=== PATIENT | male | born 1945 | race Caucasian/White ===

== ENCOUNTER 2017-06-27 11:39 | Observation (INO) | payer MEDICARE, OTHER ==
[2017-06-27 13:06] LABS: BASO # 0.1 10^3/uL (0.0-0.2); BASO % 0.3 % (0.0-1.0); EOS % 0.2 % (0.0-3.0); HEMATOCRIT 45.7 % (42.0-52.0); HEMOGLOBIN 15.6 g/dl (14.0-18.0); IMMATURE GRANULOCYTE % 0.5 % (0-3.0); LYMPH # 1.5 10^3/uL (1.5-4.5); LYMPH % 9.4 % (24.0-44.0); MEAN CORPUSCULAR HEMOGLOBIN 28.1 pg (27.0-33.0); MEAN CORPUSCULAR HGB CONC 34.1 g/dl (32.0-36.5); MEAN CORPUSCULAR VOLUME 82.2 fl (80.0-96.0); MONO # 1.1 10^3/uL (0.0-0.8); MONO % 6.7 % (0.0-5.0); NEUTROPHILS # 13.4 10^3/uL (1.8-7.7); NEUTROPHILS % 82.9 % (36.0-66.0); PLATELET COUNT, AUTOMATED 303 10^3/uL (150-450); RED BLOOD COUNT 5.56 10^6/uL (4.30-6.10); RED CELL DISTRIBUTION WIDTH 13.7 % (11.5-14.5); WHITE BLOOD COUNT 16.1 10^3/uL (4.0-10.0)
[2017-06-27] MEDS: GASTROGRAFIN SOLUTION 30ML PO ×4 (13:25→14:15)
[2017-06-27 13:28] LABS: ALBUMIN 4.4 GM/DL (3.2-5.2); ALBUMIN/GLOBULIN RATIO 1.26 (1.00-1.93); ALKALINE PHOSPHATASE 87 U/L (45-117); ALT/SGPT 31 U/L (12-78); ANION GAP 9 MEQ/L (8-16); AST/SGOT 27 U/L (7-37); BILIRUBIN,DIRECT 0.2 MG/DL (0.0-0.2); BILIRUBIN,TOTAL 0.7 MG/DL (0.2-1.0); BLOOD UREA NITROGEN 20 MG/DL (7-18); CALCIUM LEVEL 9.5 MG/DL (8.8-10.2); CARBON DIOXIDE LEVEL 29 MEQ/L (21-32); CHLORIDE LEVEL 105 MEQ/L (98-107); CREATININE FOR GFR 1.04 MG/DL (0.70-1.30); GLOMERULAR FILTRATION RATE > 60.0 (>42); GLUCOSE, FASTING 120 MG/DL (70-100); LIPASE 126 U/L (73-393); POTASSIUM SERUM 4.3 MEQ/L (3.5-5.1); SODIUM LEVEL 143 MEQ/L (136-145); TOTAL PROTEIN 7.9 GM/DL (6.4-8.2)
[2017-06-27] MEDS: MORPHINE 4 MG/ML 1ML VIAL (J2270) IV ×6 (13:36→18:12)
[2017-06-27 13:41] LABS: CPK CREATINE PHOSPHOKINASE 162 U/L (39-308)
[2017-06-27 13:58] LABS: CK-MB VALUE MASS 2.8 NG/ML (0.0-3.6); MB/CK RELATIVE INDEX 1.72 (< OR =4); TROPONIN I 0.02 NG/ML (< 0.10)
[2017-06-27] MEDS: LABETALOL HCL 100 MG/20 ML VIAL IV ×2 (14:27)
[2017-06-27] MEDS ORDERED: ISOVUE-370 76% 100ML VIAL (Q9967) As Ordered ×2 (14:36)
[2017-06-27 15:31] LABS: AMORPHOUS SEDIMENT RFX SMALL (NEGATIVE); KETONE, URINE AUTO RFX TRACE mg/dL (NEGATIVE); LEUKOCYTE ESTERASE UR AUTO RFX NEGATIVE (NEGATIVE); NITRITE, URINE AUTO RFX NEGATIVE (NEGATIVE); RBC, URINE AUTO RFX 5 /HPF (0-3); SPECIFIC GRAVITY UR AUTO RFX 1.015 (1.002-1.035); SQUAM EPITHELIAL CELL UR AURFX 0 /HPF (0-6); WBC, URINE AUTO RFX 0 /HPF (0-3)
[2017-06-27] MEDS: NS 1,000 ML IV ×4 (16:00→21:22)
[2017-06-27] MEDS ORDERED: MORPHINE 4 MG/ML 1ML VIAL (J2270) IV ×4 (16:00→20:30)
[2017-06-27] MEDS: KETOROLAC 30 MG/ML VIAL (J1885) IV ×2 (16:13)
[2017-06-27] MEDS: METOPROLOL TART 25 MG TABLET PO ×2 (16:13)
[2017-06-27 18:47] LABS: CK-MB VALUE MASS 2.4 NG/ML (0.0-3.6); CPK CREATINE PHOSPHOKINASE 151 U/L (39-308); MB/CK RELATIVE INDEX 1.58 (< OR =4); TROPONIN I 0.02 NG/ML (< 0.10)
[2017-06-27] MEDS ORDERED: PERCOCET 5MG/325MG TAB PO ×2 (20:30)
[2017-06-27] MEDS: TAMSULOSIN 0.4 MG CAP PO ×2 (21:22)
[2017-06-27] MEDS: HEPARIN SOD (PORCINE) 5000 UNITS/ML VIAL SC ×2 (22:08)
[2017-06-27] MEDS: SENOKOT S TAB PO ×2 (22:23)
[2017-06-27] MEDS: ATORVASTATIN 10 MG TAB PO ×2 (22:23)
[2017-06-28] MEDS: HEPARIN SOD (PORCINE) 5000 UNITS/ML VIAL SC ×2 (06:20)
[2017-06-28 07:08] LABS: HEMATOCRIT 39.8 % (42.0-52.0); MEAN CORPUSCULAR HEMOGLOBIN 27.7 pg (27.0-33.0); MEAN CORPUSCULAR HGB CONC 33.2 g/dl (32.0-36.5); MEAN CORPUSCULAR VOLUME 83.4 fl (80.0-96.0); PLATELET COUNT, AUTOMATED 246 10^3/uL (150-450); RED BLOOD COUNT 4.77 10^6/uL (4.30-6.10); RED CELL DISTRIBUTION WIDTH 13.9 % (11.5-14.5); WHITE BLOOD COUNT 9.9 10^3/uL (4.0-10.0)
[2017-06-28 07:16] LABS: HEMOGLOBIN 13.2 g/dl (14.0-18.0)
[2017-06-28 07:25] LABS: ANION GAP 6 MEQ/L (8-16); BLOOD UREA NITROGEN 21 MG/DL (7-18); CALCIUM LEVEL 8.6 MG/DL (8.8-10.2); CARBON DIOXIDE LEVEL 29 MEQ/L (21-32); CHLORIDE LEVEL 104 MEQ/L (98-107); CREATININE FOR GFR 1.14 MG/DL (0.70-1.30); GLOMERULAR FILTRATION RATE > 60.0 (>42); GLUCOSE, FASTING 99 MG/DL (70-100); MAGNESIUM LEVEL 2.4 MG/DL (1.8-2.4); POTASSIUM SERUM 3.7 MEQ/L (3.5-5.1); SODIUM LEVEL 139 MEQ/L (136-145)
[2017-06-28] MEDS: OMEPRAZOLE 20 MG CAP PO ×2 (08:59)
[2017-06-28] MEDS: SENOKOT S TAB PO ×2 (09:00)
[2017-06-28] MEDS: ASCORBIC ACID 500 MG TAB PO ×2 (09:00)
== END 2017-06-28 11:36 | disposition home or self-care (01) ==
LOC: M ED 11:39 → M ED INP 20:52
DX: N13.2 Hydronephrosis with renal and ureteral calculous obstruction (principal); I16.0 Hypertensive urgency; K21.9 Gastro-esophageal reflux disease without esophagitis; E78.5 Hyperlipidemia, unspecified; K59.00 Constipation, unspecified; Z79.899 Other long term (current) drug therapy
CPT/HCPCS: J2270

== ENCOUNTER → 2017-07-26 | Outpatient (REF) | payer MEDICARE, OTHER ==
[2017-07-26 18:00] LABS: APPEARANCE, URINE CLEAR (CLEAR); BACTERIA, URINE AUTO NEGATIVE (NEGATIVE); BILIRUBIN, URINE AUTO NEGATIVE (NEGATIVE); BLOOD, URINE BLOOD NEGATIVE (NEGATIVE); COLOR, URINE YELLOW (YELLOW); GLUCOSE, URINE (UA) AUTO NEGATIVE (NEGATIVE); KETONE, URINE AUTO NEGATIVE (NEGATIVE); LEUKOCYTE ESTERASE, URINE AUTO NEGATIVE (NEGATIVE); NITRITE, URINE AUTO NEGATIVE (NEGATIVE); PROTEIN, URINE AUTO NEGATIVE (NEGATIVE); RBC, URINE AUTO 0 /HPF (0-3); SPECIFIC GRAVITY URINE AUTO 1.019 (1.002-1.035); SQUAMOUS EPITHELIAL CELL UR AU 0 /HPF (0-6); UROBILINOGEN, URINE AUTO 0.2 mg/dL (0.0-2.0); WBC, URINE AUTO 0 /HPF (0-3)
== END ==
LOC: M SMT 16:58
DX: N20.1 Calculus of ureter (principal)
CPT/HCPCS: 81001

== ENCOUNTER 2018-11-28 11:31 | Inpatient (IN) | payer MEDICARE, OTHER ==
[~2018-11-28] VITALS: Ht 180.3 cm; Wt 88.4 kg
[~2018-11-28 11:31] MED LIST: ATOR1TAB19 PO; FISH1000 PO; FLOM0.4C39 PO; MULTTAB PO; OMEP40CA2 PO; PERCOCET PO; PRIL20CA9 PO; SENN1TAB41 PO; TYLE500T78 PO; VITA10006 PO
[2018-11-28 12:17] LABS: BASO % 0.3 % (0.0-1.0); EOS # 0.1 10^3/uL (0.0-0.50); EOS % 0.5 % (0.0-3.0); HEMATOCRIT 37.9 % (42.0-52.0); HEMOGLOBIN 12.6 g/dl (13.5-17.5); LYMPH # 1.4 10^3/uL (1.5-4.5); MEAN CORPUSCULAR HEMOGLOBIN 27.6 pg (27.0-33.0); MEAN CORPUSCULAR HGB CONC 33.2 g/dl (32.0-36.5); MEAN CORPUSCULAR VOLUME 82.9 fl (80.0-96.0); MONO # 0.6 10^3/uL (0.0-0.8); MONO % 4.8 % (0.0-5.0); NEUTROPHILS # 9.6 10^3/uL (1.8-7.7); NEUTROPHILS % 82.2 % (36.0-66.0); PLATELET COUNT, AUTOMATED 396 10^3/uL (150-450); RED BLOOD COUNT 4.57 10^6/uL (4.30-6.10); WHITE BLOOD COUNT 11.7 10^3/uL (4.0-10.0)
--- NOTE | 2018-11-28 12:21 | REP ---
CT BRAIN WITHOUT CONTRAST: HISTORY: Facial droop. No comparison brain imaging. CT FINDINGS: Preliminary digital supervisor functional testing radiograph is unremarkable. Bone window settings demonstrate that the visualized paranasal sinuses are intact. No bony calvarial lesion is seen. On soft tissue window settings, there is minimal generalized volume loss. Santoro-white differentiation pattern is normal above and below the tentorium. There is no evidence of intracranial hemorrhage. No mass, extra-axial fluid collection, or midline shift is seen. IMPRESSION: Minimal generalized atrophy. Otherwise negative noncontrast head CT. No bleed mass or acute infarction seen. Electronically Signed by Bernardino Vu MD 11/28/2018 03:43 P
[2018-11-28 12:38] LABS: INR 1.2; PROTHROMBIN TIME 14.9 SECONDS (11.8-14.0)
[2018-11-28 12:45] LABS: ALT/SGPT 35 U/L (12-78); BILIRUBIN,DIRECT 0.1 MG/DL (0.0-0.2); BILIRUBIN,TOTAL 0.3 MG/DL (0.2-1.0); BLOOD UREA NITROGEN 15 MG/DL (7-18); CALCIUM LEVEL 9.3 MG/DL (8.8-10.2); CARBON DIOXIDE LEVEL 29 MEQ/L (21-32); CHLORIDE LEVEL 103 MEQ/L (98-107); CREATININE FOR GFR 0.81 MG/DL (0.70-1.30); GLOMERULAR FILTRATION RATE > 60.0 (>42); GLUCOSE, FASTING 125 MG/DL (70-100); LIPASE 157 U/L (73-393); POTASSIUM SERUM 4.1 MEQ/L (3.5-5.1); SODIUM LEVEL 140 MEQ/L (136-145); TOTAL PROTEIN 7.4 GM/DL (6.4-8.2)
[2018-11-28] MEDS ORDERED: ACET-683 PO (13:14)
[2018-11-28] MEDS ORDERED: ASCO500T PO (13:14)
[2018-11-28] MEDS ORDERED: VITMTA PO (13:14)
[2018-11-28] MEDS ORDERED: IBUP200T45 PO (13:14)
[2018-11-28] MEDS ORDERED: TUMS500C PO (13:15)
[2018-11-28] MEDS ORDERED: ASPIRIN 325 MG TAB PO ONE (13:15)
--- NOTE | 2018-11-28 13:35 | REP ---
Clinical: Acute cerebrovascular accident . Comparison: None available Technique: PA and lateral. Findings: The mediastinum and cardiac silhouette are normal. The lung klein are clear and without acute consolidation, effusion, or pneumothorax. The skeletal structures are intact and normal. Impression: 1. No acute cardiopulmonary process. Electronically Signed by Fausto Coronel MD 11/28/2018 01:25 P
[2018-11-28] MEDS ORDERED: CALCIUM CARBONATE 500 MG CHEW U/D PO PRN (13:45)
--- NOTE | 2018-11-28 13:51 | REP ---
Clinical: Right calf pain . Technique: Santoro scale and color Doppler evaluation using linear high frequency transducer. Findings: Ultrasound examination of the right lower extremity deep venous structures from the common femoral vein to the popliteal vein demonstrates normal compressibility flow and wave patterns in response to respiration and augmentation. There is no evidence for deep venous thrombosis. Impression: No evidence for deep venous thrombosis. Electronically Signed by Fausto Coronel MD 11/28/2018 01:42 P
[2018-11-28 14:06] LABS: CHOLESTEROL LEVEL 92 MG/DL (<200); CHOLESTEROL RISK RATIO 2.787 (<5); GAMMA GLUTAMYLTRANSPEPTIDASE 146 U/L (15-85); HDL CHOLESTEROL 33 MG/DL (>40); LDL CHOLESTEROL 39 MG/DL (<100); NON-HDL-C 59 MG/DL; TRIGLYCERIDES LEVEL 99 MG/DL (<150)
--- NOTE | 2018-11-28 14:21 | HPEPDOC ---
General Date of Admission Nov 28, 2018 at 14:05 Date of Service: Nov 28, 2018 Chief Complaint The patient is a 73-year-old male who presented to the emergency room with right-sided facial droop. History of Present Illness Patient is a 73-year-old male with past medical history of dyslipid emia and GERD who presented to the emergency room with complaints of right-sided facial droop. Patient has reported that hes been experiencing these symptoms for approximately 1-2 days. He was prompted by his family to come in for further evaluation. When they had noticed that his right eye, did not close completely. Patient denied any difficulty swallowing. Reports that he does have a partial loss of sensation of his tongue. Patient has also reported associated numbness of his right foot toes for last 3 or 4 days. Patient denies any weakness of his extremities. Patient denies headache, nausea, vomiting, chest pain, shortness of breath, cough, abdominal pain, diarrhea, discomfort with urination or fever/chills in the last 2 weeks. Patient does report constipation, he is reported as last bowel movement was approximately 3 days ago. Patient with that his appetite is normal, but has reported a weight loss of approximately 25 pounds over 4 months. Home Medications Scheduled Ascorbic Acid (Ascorbic Acid) 500 Mg Tablet, 500 MG PO DAILY, (Reported) Atorvastatin Calcium (Atorvastatin Calcium) 10 Mg Tab, 10 MG PO QHS, (Reported) Multivitamins (Thera M Plus Tablet) 1 Each Tablet, 1 TAB PO DAILY, (Reported) Omeprazole (Omeprazole) 40 Mg Cap, 40 MG PO Q2D, (Reported) Scheduled PRN Acetaminophen (Acetaminophen) 500 Mg Tablet, 1,000 MG PO Q6H PRN for PAIN, (Reported) Calcium Carbonate (Tums) 200 Mg Tab.chew, 500 MG PO Q8H PRN for INDIGESTION, (Reported) Ibuprofen (Ibu-200) 200 Mg Tablet, 400 MG PO Q6H PRN for PAIN, (Reported) Allergies Coded Allergies: No Known Allergies (Unverified , 10/04/15) Past Medical History Medical History DLP GERD Surgical History Appendectomy Bilateral cataract extraction Colonoscopy Family History - Reviewed an noncontributory to current hospitalization Social History - Denies the use of alcohol or illicit drugs; quit smoking several years ago - Denies recent travel or sick contacts - Lives with in [place] - Occupation; patient is retired from [employer] service Review of Systems Other systems 10 point review of systems complete, all negative otherwise stated in HPI Vital Signs - Vitals: BP 146/69, HR 106, RR 16, Sat 93%RA, Temp 97.1F - General: Lying in bed, No acute distress, Speaking in full sentences, AAOx3 - HEENT: NC, AT, PERRLA, EOMI - CVS: RRR, +S1S2, - Murmurs / rubs / gallops - Lungs: Fair air entry bilaterally, No appreciable wheezing / rales / rhonchi - Abdomen: Soft, Non-distended, Non-tender - Extremities: No lower extremity edema, No calf tenderness - Neuro: 5/5 muscle strength at lower extremities, 4/5 at RUE - likely 2/2 shoulder pain, 5/5 at LUE, right-sided facial droop - Skin: No visible rashes Laboratory Data Labs 24H Laboratory Tests 2 11/28/18 12:03: Immature Granulocyte % (Auto) 0.2, White Blood Count 11.7H, Red Blood Count 4.57, Hemoglobin 12.6L, Hematocrit 37.9L, Mean Corpuscular Volume 82.9, Mean Corpuscular Hemoglobin 27.6, Mean Corpuscular Hemoglobin Concent 33.2, Red Cell Distribution Width 13.8, Platelet Count 396, Neutrophils (%) (Auto) 82.2H, Lymphocytes (%) (Auto) 12.0L, Monocytes (%) (Auto) 4.8, Eosinophils (%) (Auto) 0.5, Basophils (%) (Auto) 0.3, Neutrophils # (Auto) 9.6H, Lymphocytes # (Auto) 1.4L, Monocytes # (Auto) 0.6, Eosinophils # (Auto) 0.1, Basophils # (Auto) 0.0, Nucleated Red Blood Cells % (auto) 0.0, Prothrombin Time 14.9H, Prothromb Time International Ratio 1.20, Anion Gap 8, Glomerular Filtration Rate > 60.0, Calcium Level 9.3, Aspartate Amino Transf (AST/SGOT) 17, Alanine Aminotransferase (ALT/SGPT) 35, Alkaline Phosphatase 151H, Total Bilirubin 0.3, Direct Bilirubin 0.1, Gamma Glutamyl Transferase 146H, Total Protein 7.4, Alb umin 3.0L, Albumin/Globulin Ratio 0.68L, Triglycerides Level 99, Total Cholesterol 92, LDL Cholesterol 39, Non-HDL Cholesterol (LDL + VLDL) 59, Total HDL Cholesterol 33L, Cholesterol/HDL Ratio 2.787, Lipase 157 11/28/18 13:33: CBC/BMP Laboratory Tests 11/28/18 12:03 Red Blood Count 4.57, Mean Corpuscular Volume 82.9, Mean Corpuscular Hemoglobin 27.6, Mean Corpuscular Hemoglobin Concent 33.2, Red Cell Distribution Width 13.8, Neutrophils (%) (Auto) 82.2 H, Lymphocytes (%) (Auto) 12.0 L, Monocytes (%) (Auto) 4.8, Eosinophils (%) (Auto) 0.5, Basophils (%) (Auto) 0.3, Neutrophi ls # (Auto) 9.6 H, Lymphocytes # (Auto) 1.4 L, Monocytes # (Auto) 0.6, Eosinophils # (Auto) 0.1, Basophils # (Auto) 0.0 Plan / VTE VTE Prophylaxis Ordered?: Yes Plan Plan Right-sided facial droop - likely 2/2 acute CVA - Patient presented to the emergency room with complaints of right-sided facial droop that occurred approximately one to 2 days ago - Physical does reveal right-sided facial droop - Lab work without any significant abnormalities - CT head 11/28: Minimal generalized atrophy. Otherwise negative noncontrast head CT. No bleed mass or acute infarction seen. - Will perform neurochecks q4h - Will get MRI/MRA head, duplex ultrasound of carotids, echocardiogram, 72 hours of telemetry monitoring - Will get evaluation by physical therapy, occupational therapy, and speech therapy - s/p ASA 325 and Atorvastatin 80; c/w ASA 81 and Atorvastatin 40 Leukocytosis - likely 2/2 reactive etiology, less likely 2/2 infectious etiology - Review of systems is negative for any source of infection - Will check chest x-ray and urine analysis - Will hold off on starting antibiotic therapy at this time DLP - c/w Atorvastatin GERD - c/w Omeprazole DVT prophylaxis - Will start Heparin CAITLIN PITTMAN MD Nov 28, 2018 14:21
[2018-11-28 14:25] LABS: CK-MB VALUE MASS 1.5 NG/ML (<3.6); CPK CREATINE PHOSPHOKINASE 67 U/L (39-308); MB/CK RELATIVE INDEX 2.24 (< OR =4); TROPONIN I < 0.02 NG/ML (< 0.10)
[2018-11-28 14:39] LABS: HEMOGLOBIN A1c 6.4 %
--- NOTE | 2018-11-28 14:49 | REP ---
Clinical: Possible cerebral infarction. Technique: Santoro scale and color Doppler evaluation using linear high frequency transducer Findings: Two-dimensional santoro scale and color images demonstrate normal arterial lumen with laminar flow and no appreciable narrowing. Color Doppler interrogation demonstrates normal arterial wave patterns and velocities with no significant spectral broadening. Normal flow direction is appreciated in the bilateral vertebral arteries. RIGHT (cm/s) LEFT (cm/s) ICA peak systolic velocity 118.1 92.3 ICA diastolic velocity 27.1 20.9 ECA peak systolic velocity 90.1 108.8 CCA peak systolic velocity 65.9 71.1 ICA/CCA ratio 1.8 1.3 Impression: No hemodynamically significant areas of narrowing or stenosis appreciated. Based on set standards narrowing falls within the less than 50% range. Electronically Signed by Fausto Coronel MD 11/28/2018 02:41 P
[2018-11-28] MEDS ORDERED: ATORVASTATIN 20 MG TAB PO ONE (15:00)
--- NOTE | 2018-11-28 15:23 | REP ---
MRI BRAIN WITHOUT CONTRAST: HISTORY: CVA. Comparison CT study November 28, 2018. TECHNIQUE: Axial and sagittal imaging planes are utilized for T1- and T2-weighted scans. Sequences include spin echo, fast spin echo, FLAIR, and diffusion weighted sequences. MRI FINDINGS: No bony calvarial lesion is seen. Craniocervical junction and upper cervical cord are normal in appearance. No paranasal sinus or intraorbital abnormality. There is minimal generalized atrophy. Diffusion weighted scan show no evidence to suggest acute ischemia. There is no evidence of intracranial hemorrhage. No mass, extra-axial fluid collection, infarct, or midline shift is seen. There are mild small vessel changes. IMPRESSION: No acute intracranial abnormality. Electronically Signed by Bernardino Vu MD 11/28/2018 03:50 P
--- NOTE | 2018-11-28 15:27 | REP ---
MR ANGIOGRAPHY THE BRAIN WITHOUT CONTRAST: HISTORY: CVA. TECHNIQUE: 3D [id number] MR angiography of the brain is acquired in the usual fashion and maximal intensity projection images were generated in rotational format about the vertical and horizontal axes. In addition, source axial T1-weighted images are viewed in cine mode. MR ANGIOGRAPHIC FINDINGS: The left distal vertebral artery is large and patent. The right distal vertebral artery is not definitely seen. Basilar artery is a little tortuous but widely patent. The posterior cerebral and superior cerebellar vessels are normal and symmetric. The distal internal carotid arteries are unremarkable. Anterior and middle cerebral arteries appear intact. There is no visible demarco aneurysm or arteriovenous malformation. IMPRESSION: Left dominant distal vertebral artery. Right distal vertebral artery not seen. Otherwise unremarkable MR angiography the brain. Electronically Signed by Bernardino Vu MD 11/28/2018 03:50 P
[2018-11-28 16:00] VITALS: BP 160/70
[2018-11-28] MEDS: OMEPRAZOLE 20 MG CAP PO SCH (16:37)
[2018-11-28] MEDS: HEPARIN SOD (PORCINE) 5000 UNITS/ML VIAL SC SCH ×2 (16:38→21:04)
--- NOTE | 2018-11-28 17:19 | ECHO ---
DATE OF PROCEDURE: 11/28/2018 REFERRING PHYSICIAN: Storm Villavicencio MD INDICATION: Acute stroke. HEIGHT: 180 cm WEIGHT: 92 kg 2D MEASUREMENTS: Aortic annulus: 2.1 cm Aortic root: 3.3 cm Left atrium: 4.1 cm Ventricular septum: 1.21 cm Posterior wall: 1.15 cm Left ventricle diastole: 4.8 cm Left ventricle systole: 2.7 cm Inferior vena cava: 2.5 cm more than 50% respiratory variation. DOPPLER MEASUREMENTS: Aortic valve velocity: 194 cm/s LVOT velocity: 180 cm/s LVOT VTI: 37.2 cm Very mild mitral regurgitation. Mitral E velocity: 74.7 cm/s Mitral A velocity: 103 cm/s Mitral deceleration time: 264 ms Trace tricuspid regurgitation. Pulmonary artery systolic pressure 34 mmHg by pulmonary acceleration time method. MITRAL ANNULAR TISSUE DOPPLER: E prime septal: 3.9 cm/s E prime lateral: 6.0 cm/s DESCRIPTION: Rhythm was sinus. Image quality was fair. No pericardial effusion. This is a 2D, M-mode, color flow Doppler and pulse wave Doppler examination that included mitral annular tissue Doppler. CONCLUSIONS: 1. Normal left ventricle internal dimensions and wall thickness. No regional wall motion abnormalities of the left ventricle. Left ventricle appeared to be just mildly hyperdynamic. Left ventricular ejection fraction (LVEF) 70-75% by visual estimate. Normal right ventricle size and systolic function. 2. Moderate mitral annular calcification. No mitral stenosis. Very mild mitral regurgitation. 3. Moderate aortic valve sclerosis of a three-cuspid aortic valve. No aortic regurgitation or stenosis. 4. Suggestive of mild elevation of pulmonary artery systolic pressure. 5. No intracardiac masses or thrombi. No vegetation seen. 6. Otherwise, normal appearing echocardiogram Doppler findings.
[2018-11-28] MEDS ORDERED: SENOKOT S TAB PO PRN (17:45)
[2018-11-28] MEDS ORDERED: ACETAMINOPHEN TAB 650MG DOSE (2X325MG) PO PRN (18:00)
[2018-11-28 20:00] VITALS: BP 137/65
[2018-11-28] MEDS: DOCUSATE SODIUM 100 MG CAP PO SCH (21:04)
--- NOTE | 2018-11-28 22:28 | ECGEPIP ---
[facility] - ED Test Date: 2018-11-28 Pat Name: HELENA RAMIREZ Department: Room: [place] [address] Gender: Male [employer]: sarbjit : [id number] Requested By: Winsome Mcgee Order Number: [id number] Reading MD: David Luna Measurements Intervals Bell Rate: 0 P: ND: 0 QRS: 0 QRSD: 0 T: 0 QT: 0 QTc: 0 Interpretive Statements NO INTERPRETATION POSSIBLE Electronically Signed on 11-28-2018 22:28:47 EDT by David Luna
[2018-11-28 23:59] VITALS: BP 154/72
[2018-11-29] MEDS: IBUPROFEN 600 MG TAB PO PRN ×2 (02:48→22:54)
[2018-11-29 04:00] VITALS: BP 147/77
[2018-11-29 05:33] LABS: BASO % 0.4 % (0.0-1.0); EOS # 0.1 10^3/uL (0.0-0.50); HEMOGLOBIN 12.3 g/dl (13.5-17.5); LYMPH # 1.9 10^3/uL (1.5-4.5); LYMPH % 17.7 % (24.0-44.0); MEAN CORPUSCULAR HGB CONC 32.4 g/dl (32.0-36.5); MEAN CORPUSCULAR VOLUME 83.3 fl (80.0-96.0); MONO # 0.7 10^3/uL (0.0-0.8); MONO % 6.3 % (0.0-5.0); NEUTROPHILS % 74.2 % (36.0-66.0); PLATELET COUNT, AUTOMATED 366 10^3/uL (150-450); RED BLOOD COUNT 4.56 10^6/uL (4.30-6.10); WHITE BLOOD COUNT 10.8 10^3/uL (4.0-10.0)
[2018-11-29 05:52] LABS: BLOOD UREA NITROGEN 15 MG/DL (7-18); CALCIUM LEVEL 8.7 MG/DL (8.8-10.2); CARBON DIOXIDE LEVEL 29 MEQ/L (21-32); CHLORIDE LEVEL 104 MEQ/L (98-107); CREATININE FOR GFR 0.71 MG/DL (0.70-1.30); GLOMERULAR FILTRATION RATE > 60.0 (>42); GLUCOSE, FASTING 104 MG/DL (70-100); POTASSIUM SERUM 3.7 MEQ/L (3.5-5.1); SODIUM LEVEL 139 MEQ/L (136-145)
[2018-11-29] MEDS: HEPARIN SOD (PORCINE) 5000 UNITS/ML VIAL SC SCH ×3 (05:55→20:43)
[2018-11-29 08:00] VITALS: BP 154/78
[2018-11-29] MEDS: ASCORBIC ACID 500 MG TAB PO SCH (09:10)
[2018-11-29] MEDS: OMEPRAZOLE 20 MG CAP PO SCH (09:11)
[2018-11-29] MEDS: DOCUSATE SODIUM 100 MG CAP PO SCH ×2 (09:11→20:43)
[2018-11-29] MEDS: ATORVASTATIN 20 MG TAB PO SCH (09:11)
[2018-11-29] MEDS: ASPIRIN 81 MG ENTERIC TAB PO SCH (09:11)
[2018-11-29] MEDS: MULTIVITAMINS/MINERALS THERAP 1 TAB PO SCH (09:12)
[2018-11-29 11:59] VITALS: BP 142/73
[2018-11-29] MEDS ORDERED: PROHANCE 279.3MG/ML 5ML VIAL (A9576) As Ordered ONE (13:50)
[2018-11-29] MEDS ORDERED: PROHANCE 279.3MG/ML 15ML VIAL (A9576) As Ordered ONE (13:51)
--- NOTE | 2018-11-29 15:30 | REPVR ---
EXAM: MR Cervical Spine Without and With Contrast EXAM DATE/TIME: 11/29/2018 2:12 PM CLINICAL HISTORY: 73 years old, male; Weakness; Additional info: Evaluate for nerve impingment TECHNIQUE: Imaging protocol: Multiplanar magnetic resonance images of the cervical spine without and with intravenous contrast. Contrast material: PROHANCE;Contrast volume: 18 ml;Contrast route: HAND INJECTION IV; COMPARISON: US Duplex,carotid (complete) 11/28/2018 2:11 PM FINDINGS: Vertebrae: Unremarkable. Spinal cord: There is question of minimal high signal abnormality within the cervical cord at the C6/7 level, possibly reflecting myelomalacia. There is moderate intradural enhancement on the postcontrast images, more than one typically sees. 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 C2-C3: No significant disc disease. No significant spinal stenosis. C3-C4: There is a moderate disc/osteophyte complex that flattens the ventral thecal sac. There is mild bilateral neuroforaminal narrowing. C4-C5: There is degenerative disc disease including disc space narrowing and dessication. There is a moderate disc/osteophyte complex that flattens the ventral thecal sac. There is bilateral uncovertebral joint arthropathy, worse on the right. There is moderate right-sided neuroforaminal narrowing. There is mild left-sided neuroforaminal narrowing. There is mild spinal canal stenosis. C5-C6: There is a moderate disc/osteophyte complex that flattens the ventral thecal sac. There is moderate bilateral uncovertebral joint arthropathy. There is mild bilateral neuroforaminal narrowing. C6-C7: There is disc space narrowing and desiccation. There are moderate degenerative end plate changes at this level. There is a moderate disc/osteophyte complex that flattens the ventral thecal sac. There is mild/moderate bilateral neuroforaminal narrowing, left worse than right. There is mild spinal canal stenosis. C7-T1: There is disc space narrowing and desiccation. There are moderate degenerative end plate changes at this level. There is a moderate disc/osteophyte complex that flattens the ventral thecal sac. There is moderate bilateral uncovertebral joint arthropathy. There is moderate bilateral neural foraminal narrowing. Soft tissues: Unremarkable. IMPRESSION: 1. Multilevel degenerative changes with variable degrees of spinal canal and neuroforaminal narrowing. 2. There is question of minimal high signal abnormality within the cervical cord at the C6/7 level, possibly reflecting myelomalacia. 3. There is moderate intradural enhancement on the postcontrast images, more than one typically sees. 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 Neurosurgical consultation is recommended. Followup postcontrast MRI of the brain is also recommended. Electronically signed by: Eduardo Moore On 11/29/2018 15:30:23 PM
[2018-11-29 15:53] VITALS: BP 157/74
--- NOTE | 2018-11-29 17:17 | IPNPDOC ---
Text Note Date of Service The patient was seen on 11/29/18. NOTE Subjective: Patient is a 73-year-old male with past medical history of dyslipidemia and GERD who presented to the emergency room with complaints of right-sided facial droop. Patient has reported that hes been experiencing these symptoms for approximately 1-2 days. He was prompted by his family to come in for further evaluation. When they had noticed that his right eye, did not close completely. Patient denied any difficulty swallowing. Reports that he does have a partial loss of sensation of his tongue. Patient has also reported associated numbness of his right foot toes for last 3 or 4 days. Patient denies any weakness of his extremities. Patient was suspected of having a stroke and was admitted to the hospitalist service for further workup / evaluation. Patient was seen and examined at the bedside. Patient still reports weakness of the right side of his face. Denies any CP, SOB or palpitations. Denies any N/V, abdominal pain, D, or dysuria. Patient does report constipation. Objective: - Vitals: See below - General: Lying in bed, No acute distress, Speaking in full sentences, AAOx3 - HEENT: NC, AT - CVS: RRR, +S1S2 - Lungs: Fair air entry bilaterally, - w/r/r - Abdomen: Soft, Non-distended, Non-tender - Extremities: - edema, No calf tenderness - Neuro: Right facial droop persists - Skin: No visible rashes Assessment and plan: Right-sided facial droop - possibly 2/2 viral illness, possibly 2/2 cervical nerve impingement, unlikely 2/2 CVA - Patient presented to the emergency room with complaints of right-sided facial droop that occurred approximately one to 2 days ago - Physical with persistent R facial droop - Lab work without any significant abnormalities - CT head 11/28: Minimal generalized atrophy. Otherwise negative noncontrast head CT. No bleed mass or acute infarction seen. - MRI / MRA brain noted - Carotid US noted - c/w neurochecks q4h - c/w telemetry monitoring - Will get evaluation by physical therapy, occupational therapy, and speech therapy - s/p ASA 325 and Atorvastatin 80; c/w ASA 81 and Atorvastatin 40 - Will get MRI cervical spine and evaluate for lyme disease Leukocytosis - likely 2/2 reactive etiology, less likely 2/2 infectious etiology - Improving - Review of systems is negative for any source of infection - Will check chest x-ray and urine analysis - Hold antibiotics DLP - c/w Atorvastatin GERD - c/w Omeprazole DVT prophylaxis - c/w Heparin VS,Fishbone, I+O VS, Fishbone, I+O Laboratory Tests 11/29/18 05:11 Red Blood Count 4.56, Mean Corpuscular Volume 83.3, Mean Corpuscular Hemoglobin 27.0, Mean Corpuscular Hemoglobin Concent 32.4, Red Cell Distribution Width 13.8, Neutrophils (%) (Auto) 74.2 H, Lymphocytes (%) (Auto) 17.7 L, Monocytes (%) (Auto) 6.3 H, Eosinophils (%) (Auto) 1.0, Basophils (%) (Auto) 0.4, Neutrophils # (Auto) 8.0 H, Lymphocytes # (Auto) 1.9, Monocytes # (Auto) 0.7, Eosinophils # (Auto) 0.1, Basophils # (Auto) 0.0, Calcium Level 8.7 L Vital Signs Date Time Temp Pulse Resp B/P (MAP) Pulse Ox O2 Delivery O2 Flow Rate FiO2 11/29/18 15:53 98.3 90 18 157/74 (101) 92 11/28/18 11:32 Room Air I&O- Last 24 Hours up to 6 AM 11/29/18 06:00 Intake Total 60 ml Output Total 0 ml Balance 60 ml CAITLIN PITTMAN MD Nov 29, 2018 17:17
[2018-11-29] MEDS: LACTULOSE 20 GM/30 ML SYRUP UD PO SCH ×2 (17:42→20:43)
[2018-11-29 20:00] VITALS: BP 139/68
[2018-11-29 23:59] VITALS: BP 144/67
[2018-11-30 04:00] VITALS: BP 145/75
[2018-11-30] MEDS: HEPARIN SOD (PORCINE) 5000 UNITS/ML VIAL SC SCH (06:00)
[2018-11-30 06:07] LABS: BASO # 0.1 10^3/uL (0.0-0.2); BASO % 0.5 % (0.0-1.0); EOS # 0.2 10^3/uL (0.0-0.50); EOS % 1.7 % (0.0-3.0); HEMATOCRIT 39.4 % (42.0-52.0); HEMOGLOBIN 12.6 g/dl (13.5-17.5); LYMPH # 1.8 10^3/uL (1.5-4.5); LYMPH % 17.6 % (24.0-44.0); MEAN CORPUSCULAR HEMOGLOBIN 27.5 pg (27.0-33.0); MONO # 0.7 10^3/uL (0.0-0.8); MONO % 7.3 % (0.0-5.0); NEUTROPHILS # 7.4 10^3/uL (1.8-7.7); NEUTROPHILS % 72.4 % (36.0-66.0); PLATELET COUNT, AUTOMATED 382 10^3/uL (150-450); RED BLOOD COUNT 4.58 10^6/uL (4.30-6.10); WHITE BLOOD COUNT 10.2 10^3/uL (4.0-10.0)
[2018-11-30 06:28] LABS: BLOOD UREA NITROGEN 17 MG/DL (7-18); CALCIUM LEVEL 8.9 MG/DL (8.8-10.2); CARBON DIOXIDE LEVEL 29 MEQ/L (21-32); CHLORIDE LEVEL 105 MEQ/L (98-107); CREATININE FOR GFR 0.74 MG/DL (0.70-1.30); GLOMERULAR FILTRATION RATE > 60.0 (>42); GLUCOSE, FASTING 94 MG/DL (70-100); MAGNESIUM LEVEL 2.3 MG/DL (1.8-2.4); POTASSIUM SERUM 3.9 MEQ/L (3.5-5.1); SODIUM LEVEL 140 MEQ/L (136-145)
[2018-11-30 08:00] VITALS: BP 137/66
[2018-11-30] MEDS: LACTULOSE 20 GM/30 ML SYRUP UD PO SCH (08:40)
[2018-11-30] MEDS: OMEPRAZOLE 20 MG CAP PO SCH (08:41)
[2018-11-30] MEDS: ASPIRIN 81 MG ENTERIC TAB PO SCH (08:41)
[2018-11-30] MEDS: MULTIVITAMINS/MINERALS THERAP 1 TAB PO SCH (08:41)
[2018-11-30] MEDS: ATORVASTATIN 20 MG TAB PO SCH (08:41)
[2018-11-30] MEDS: DOCUSATE SODIUM 100 MG CAP PO SCH (08:42)
[2018-11-30] MEDS: ASCORBIC ACID 500 MG TAB PO SCH (08:42)
[2018-11-30] MEDS ORDERED: predniSONE 20 MG TAB PO SCH (09:00)
[2018-11-30] MEDS ORDERED: PRED10TA2 PO (09:38)
[2018-11-30] MEDS ORDERED: ASPI81TAEC PO (09:38)
--- NOTE | 2018-11-30 09:59 | DS.PDOC ---
Discharge Summary General Date of Admission Nov 28, 2018 at 14:05 Date of Discharge 11/30/2018 Discharge Summary PROCEDURES PERFORMED DURING STAY: [None]. ADMITTING DIAGNOSES / DISCHARGE DIAGNOSES: Right-sided facial droop - possibly 2/2 William's plays - 2/2 viral/bacterial infection, possibly 2/2 cervical nerve impingement, unlikely 2/2 CVA Leukocytosis - likely 2/2 reactive etiology, less likely 2/2 infectious etiology DLP GERD DVT prophylaxis COMPLICATIONS/CHIEF COMPLAINT: Right sided facial droop HISTORY OF PRESENT ILLNESS: Patient is a 73-year-old male with past medical history of d yslipidemia and GERD who presented to the emergency room with complaints of right-sided facial droop. Patient has reported that hes been experiencing these symptoms for approximately 1-2 days. He was prompted by his family to come in for further evaluation. When they had noticed that his right eye, did not close completely. Patient denied any difficulty swallowing. Reports that he does have a partial loss of sensation of his tongue. Patient has also reported associated numbness of his right foot toes for last 3 or 4 days. Patient denies any weakness of his extremities. Patient was suspected of having a stroke and was admitted to the hospitalist service for further workup / evaluation. HOSPITAL COURSE: Right-sided facial droop - possibly 2/2 William's plays - 2/2 viral/bacterial infection, possibly 2/2 cervical nerve impingement, unlikely 2/2 CVA - Patient presented to the emergency room with complaints of right-sided facial droop that occurred approximately one to 2 days ago - Physical with persistent R facial droop - Lab work without any significant abnormalities - CT head 11/28: Minimal generalized atrophy. Otherwise negative noncontrast head CT. No bleed mass or acute infarction seen. - Carotid US noted - MRI / MRA brain noted - MRI Cervical Spine 11/30: 1. Multilevel degenerative changes with variable degrees of spinal canal and neuroforaminal narrowing. 2. There is question of minimal high signal abnormality within the cervical cord at the C6/7 level, possibly reflecting myelomalacia. 3. There is moderate intradural enhancement on the postcontrast images, more than one typically sees. 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 Neurosurgical consultation is recommended. Followup postcontrast MRI of the brain is also recommended. - c/w Neuro checks q4h - c/w telemetry monitoring - c/w PT / OT - c/w ASA 81 and Atorvastatin; s/p ASA 325 and Atorvastatin 80; - Patient already has scheduled appointment with Dr. Jayden Brown on December 02 - Patient has been advised to follow with neurology as well as neurosurgery within 1-2 weeks - Continue with prednisone on tapering basis Leukocytosis - likely 2/2 reactive etiology, less likely 2/2 infectious etiology - Improving - Review of systems is negative for any source of infection - Will check chest x-ray and urine analysis - Hold antibiotics DLP - c/w Atorvastatin GERD - c/w Omeprazole DVT prophylaxis - c/w Heparin DISCHARGE MEDICATIONS: Please see below. ALLERGIES: Please see below. PHYSICAL EXAMINATION ON DISCHARGE: Vitals (See below) General: Lying in bed, no acute distress, comfortable, AAOx3 HEENT: NC, AT CVS: RRR, +S1S2 Lungs: Fair air entry b/l, no appreciable wheezing, rhonchi or rales Abdomen: Soft, ND, NT Extremities: - Edema, - Calf tenderness LABORATORY DATA: Please see below. ACTIVITY: [As tolerated]. DISCHARGE PLAN: Follow-up with Dr. Jayden Brown within 3 days; scheduled for 12/02/2018 Patient will require neurology and neurosurgical referral Remain compliant with treatment plan and medications Return to the ER if you experience any problems DISPOSITION: Home DISCHARGE CONDITION: [Stable]. TIME SPENT ON DISCHARGE: 35 minutes Vital Signs/I&Os Vital Signs Date Time Temp Pulse Resp B/P (MAP) Pulse Ox O2 Delivery O2 Flow Rate FiO2 11/30/18 08:00 97.1 79 16 137/66 (89) 94 11/28/18 11:32 Room Air I&O- Last 24 Hours up to 6 AM 11/30/18 05:59 Intake Total 600 ml Output Total 1426 ml Balance -826 ml Laboratory Data Labs 24H Laboratory Tests 2 11/30/18 05:14: Immature Granulocyte % (Auto) 0.5, White Blood Count 10.2H, Red Blood Count 4.58, Hemoglobin 12.6L, Hematocrit 39.4L, Mean Corpuscular Volume 86.0, Mean Corpuscular Hemoglobin 27.5, Mean Corpuscular Hemoglobin Concent 32.0, Red Cell Distribution Width 13.8, Platelet Count 382, Neutrophils (%) (Auto) 72.4H, Lymphocytes (%) (Auto) 17.6L, Monocytes (%) (Auto) 7.3H, Eosinophils (%) (Auto) 1.7, Basophils (%) (Auto) 0.5, Neutrophils # (Auto) 7.4, Lymphocytes # (Auto) 1.8, Monocytes # (Auto) 0.7, Eosinophils # (Auto) 0.2, Basophils # (Auto) 0.1, Nucleated Red Blood Cells % (auto) 0.0, Anion Gap 6L, Glomerular Filtration Rate > 60.0, Blood Urea Nitrogen 17, Creatinine 0.74, Sodium Level 140, Potassium Level 3.9, Chloride Level 105, Carbon Dioxide Level 29, Calcium Level 8.9, Magnesium Level 2.3 11/30/18 07:49: CBC/BMP Laboratory Tests 11/30/18 05:14 Red Blood Count 4.58, Mean Corpuscular Volume 86.0, Mean Corpuscular Hemoglobin 27.5, Mean Corpuscular Hemoglobin Concent 32.0, Red Cell Distribution Width 13.8, Neutrophils (%) (Auto) 72.4 H, Lymphocytes (%) (Auto) 17.6 L, Monocytes (%) (Auto) 7.3 H, Eosinophils (%) (Auto) 1.7, Basophils (%) (Auto) 0.5, Neutrophils # (Auto) 7.4, Lymphocytes # (Auto) 1.8, Monocytes # (Auto) 0.7, Eosinophils # (Auto) 0.2, Basophils # (Auto) 0.1, Calcium Level 8.9 Discharge Medications Scheduled Ascorbic Acid (Ascorbic Acid) 500 Mg Tablet, 500 MG PO DAILY, (Reported) Aspirin (Aspirin EC) 81 Mg Tablet.dr, 81 MG PO DAILY Atorvastatin Calcium (Atorvastatin Calcium) 10 Mg Tab, 10 MG PO QHS, (Reported) Multivitamins (Thera M Plus Tablet) 1 Each Tablet, 1 TAB PO DAILY, (Reported) Omeprazole (Omeprazole) 40 Mg Cap, 40 MG PO Q2D, (Reported) Prednisone (Prednisone) 10 Mg Tablet, 10 MG PO TAPER Take 6 tabs daily x 3 days, then 4 tabs daily x 3 days, then 2 tabs daily x 3 days, then 1 tab daily x 3 days and stop Scheduled PRN Acetaminophen (Acetaminophen) 500 Mg Tablet, 1,000 MG PO Q6H PRN for PAIN, (Reported) Calcium Carbonate (Tums) 200 Mg Tab.chew, 500 MG PO Q8H PRN for INDIGESTION, (Reported) Ibuprofen (Ibu-200) 200 Mg Tablet, 400 MG PO Q6H PRN for PAIN, (Reported) Allergies Coded Allergies: No Known Allergies (Unverified , 10/04/15) CAITLIN PITTMAN MD Nov 30, 2018 09:59
[2018-12-02 14:07] LABS: IgG P18 AB Present (.); IgG P23 AB Present (.); IgG P28 AB Absent (.); IgG P30 AB Absent (.); IgG P39 AB Present (.); IgG P41 AB Present (.); IgG P45 AB Present (.); IgG P66 AB Absent (.); IgG P93 AB Absent (.); IgM P23 AB Present (.); IgM P39 AB Present (.); IgM P41 AB Present (.); LYME IgG WB INTERPRETATION Positive (.); LYME IgM WB INTERPRETATION Positive (.); Lyme Disease IgG Ab 18 kDa Ban Present (.); Lyme Disease IgG Ab 23 kDa Ban Present (.); Lyme Disease IgG Ab 28 kDa Ban Absent (.); Lyme Disease IgG Ab 30 kDa Ban Absent (.); Lyme Disease IgG Ab 39 kDa Ban Present (.); Lyme Disease IgG Ab 41 kDa Ban Present (.); Lyme Disease IgG Ab 45 kDa Ban Present (.); Lyme Disease IgG Ab 58 kDa Ban Present (.); Lyme Disease IgG Ab 66 kDa Ban Absent (.); Lyme Disease IgG Ab 93 kDa Ban Absent (.); Lyme Disease IgG West Blot Int Positive (.); Lyme Disease IgG/IgM Antibodie 5.49 ISR (0.00-0.90); Lyme Disease IgM Ab 23 kDa Ban Present (.); Lyme Disease IgM Ab 39 kDa Ban Present (.); Lyme Disease IgM Ab 41 kDa Ban Present (.); Lyme Disease IgM Ab Quantitati 9.72 index (0.00-0.79); Lyme Disease IgM West Blot Int Positive (.)
== END 2018-11-30 11:55 | disposition home or self-care (01) | DRG 74 ==
LOC: M ED 11:31 → M ED INP 14:05 → M PCU 16:05
PROVIDERS: ADMIT Internal Medicine; ATTEND Internal Medicine
DX: G51.0 Bell's palsy (principal); E78.5 Hyperlipidemia, unspecified; B34.9 Viral infection, unspecified; G54.2 Cervical root disorders, not elsewhere classified; K21.9 Gastro-esophageal reflux disease without esophagitis; Z79.899 Other long term (current) drug therapy; Z98.41 Cataract extraction status, right eye; Z98.42 Cataract extraction status, left eye; Z90.49 Acquired absence of other specified parts of digestive tract; Z87.891 Personal history of nicotine dependence

== ENCOUNTER → 2020-01-11 | Outpatient (REF) | payer MEDICARE, OTHER ==
[~2020-01-11] MED LIST changes: +ACET-683 PO; +ASCO500T PO; +ASPI81TAEC PO; +IBUP200T45 PO; -OMEP40CA2 PO; +OMEP40CA97 PO; +PRED10TA2 PO; +PRIL20TA2 PO; +TUMS500C PO; +VITMTA PO
== END ==
LOC: M LAB REF 09:20
PROVIDERS: ATTEND Physician Assistant
DX: C44.219 Basal cell carcinoma of skin of left ear and external auricular canal (principal)

== ENCOUNTER → 2020-03-02 | Outpatient (REF) | payer MEDICARE, OTHER | LOC: M LAB REF 09:50 | PROVIDERS: ATTEND Dermatology | DX: C44.219 Basal cell carcinoma of skin of left ear and external auricular canal (principal) ==

== ENCOUNTER → 2020-06-21 | Outpatient (CLI) | payer MEDICARE, OTHER ==
[2020-06-24 00:10] LABS: PSA % FREE 17.9 % (.); PSA FREE 1.25 ng/mL
== END ==
LOC: M PLALAB 13:30
PROVIDERS: ATTEND Family Medicine
DX: R97.21 Rising PSA following treatment for malignant neoplasm of prostate (principal); R97.20 Elevated prostate specific antigen [PSA]

== ENCOUNTER → 2020-10-14 | Outpatient (REF) | payer MEDICARE, OTHER ==
[~2020-10-14] MED LIST changes: +ASPI-569 PO; -ASPI81TAEC PO; +OMEP40CA4 PO; -OMEP40CA97 PO
[2020-10-14 13:41] LABS: BASO % 0.5 % (0.0-1.0); EOS # 0.1 10^3/uL (0.0-0.5); EOS % 1.2 % (0.0-3.0); HEMATOCRIT 44.8 % (42.0-52.0); HEMOGLOBIN 14.5 g/dl (13.5-17.5); LYMPH # 2.5 10^3/uL (1.5-5.0); MEAN CORPUSCULAR HEMOGLOBIN 27.6 pg (27.0-33.0); MEAN CORPUSCULAR HGB CONC 32.4 g/dl (32.0-36.5); MEAN CORPUSCULAR VOLUME 85.3 fl (80.0-96.0); MONO # 0.7 10^3/uL (0.0-0.8); MONO % 8.8 % (2.0-8.0); NEUTROPHILS % 59.3 % (36.0-66.0); PLATELET COUNT, AUTOMATED 429 10^3/uL (150-450); RED BLOOD COUNT 5.25 10^6/uL (4.30-6.10); WHITE BLOOD COUNT 8.4 10^3/uL (4.0-10.0)
[2020-10-14 14:22] LABS: ALBUMIN 4.1 GM/DL (3.2-5.2); ALT/SGPT 26 U/L (12-78); BILIRUBIN,DIRECT 0.2 MG/DL (0.0-0.2); BILIRUBIN,TOTAL 0.5 MG/DL (0.2-1.0); BLOOD UREA NITROGEN 20 MG/DL (7-18); CALCIUM LEVEL 10.2 MG/DL (8.8-10.2); CARBON DIOXIDE LEVEL 33 MEQ/L (21-32); CHLORIDE LEVEL 102 MEQ/L (98-107); CREATININE FOR GFR 0.76 MG/DL (0.70-1.30); GLOMERULAR FILTRATION RATE > 60.0 (>42); GLUCOSE, FASTING 66 MG/DL (70-100); PHOSPHORUS LEVEL 3.2 MG/DL (2.5-4.9); POTASSIUM SERUM 5.1 MEQ/L (3.5-5.1); SODIUM LEVEL 138 MEQ/L (136-145); TOTAL PROTEIN 7.6 GM/DL (6.4-8.2)
== END ==
LOC: M PLALAB 13:25
PROVIDERS: ATTEND Podiatrist Foot & Ankle Surgery
DX: B35.1 Tinea unguium (principal)

== ENCOUNTER → 2021-01-31 | Outpatient (REF) | payer MEDICARE, OTHER ==
[~2021-01-31] MED LIST changes: -IBUP200T45 PO; +IBUP200T46 PO
== END ==
LOC: M SMT PRO 12:49
PROVIDERS: ATTEND Urology
DX: R97.20 Elevated prostate specific antigen [PSA] (principal); N40.2 Nodular prostate without lower urinary tract symptoms
CPT/HCPCS: 55700; 76942; G0416

== ENCOUNTER → 2021-09-12 | Outpatient (CLI) | payer MEDICARE, OTHER ==
[~2021-09-12] MED LIST changes: +ACET650T61 PO; +FINA5TAB2 PO; +VITA500C19 PO
== END ==
LOC: M RAD 11:44
PROVIDERS: ATTEND Nurse Practitioner Women's Health
DX: N20.0 Calculus of kidney (principal)

== ENCOUNTER → 2024-02-14 | Outpatient (CLI) | payer MEDICARE, OTHER ==
[~2024-02-14] MED LIST changes: -SENN1TAB41 PO; +SENN1TAB85 PO; -VITA500C19 PO; +VITA500C22 PO
== END ==
LOC: M WUC 14:15
PROVIDERS: ATTEND Family Medicine
DX: M25.511 Pain in right shoulder (principal)